=== PATIENT | male | born 1965 | race Hispanic/Latino ===

== ENCOUNTER 2019-07-01 07:26 | Observation (INO) | payer OTHER ==
[2019-07-01] VITALS (19 sets, daily range): BP systolic 132–149; BP diastolic 74–110
[2019-07-01 07:56] LABS: BASOPHILS % (AUTO) 0.9 % (0.0-5.0); HEMATOCRIT 47.8 % (42-54); LYMPHOCYTES % (AUTO) 18.6 % (21.0-51.0); MEAN CORPUSCULAR HEMOGLOBIN 30.6 pg (27.0-33.0); MEAN CORPUSCULAR HGB CONC 34.1 g/dL (32.0-36.0); MEAN CORPUSCULAR VOLUME 89.7 fL (79-99); MONOCYTES % (AUTO) 7.4 % (3.0-13.0); NEUTROPHILS % (AUTO) 72.1 % (40.0-77.0); NUCLEATED RED BLOOD CELLS 0.1 % (0.0-0.19); PLATELET COUNT (AUTO) 284 K/uL (130-400); RED BLOOD CELL COUNT(AUTO) 5.33 MIL/uL (4.50-6.20); RED CELL DISTRIBUTION WIDTH 13.3 % (11.0-15.5); WHITE BLOOD COUNT (AUTO) 9.9 K/uL (4.8-10.8)
[2019-07-01 07:57] LABS: APPEARANCE,URINE Clear (CLEAR); BILIRUBIN,URINE Negative (NEGATIVE); COLOR,URINE Yellow (YELLOW); GLUCOSE, URINE (UA) Negative (NEGATIVE); KETONES,URINE Negative (NEGATIVE); LEUKOCYTE ESTERASE ,URINE Trace (NEGATIVE); NITRATE,URINE Negative (NEGATIVE); OCCULT BLOOD,URINE Moderate (NEGATIVE); PROTEIN,URINE Negative (NEGATIVE); UROBILINOGEN,URINE 0.2 mg/dL (0.2-1.0)
[2019-07-01] MEDS ORDERED: ONDANSETRON HCL 4 MG/2 ML VIAL ONE (08:01)
[2019-07-01] MEDS ORDERED: KETOROLAC TROMETHAMINE 30MG/ML ONE (08:01)
[2019-07-01] MEDS ORDERED: SODIUM CHLORIDE 0.9% 1000ML 1,000 ML IV ONE (08:02)
[2019-07-01 08:05] LABS: AMPHET/METH SCREEN,URINE NEGATIVE (NEGATIVE); BACTERIA,URINE None Seen /HPF (None Seen); BARBITURATE SCREEN, URINE NEGATIVE (NEGATIVE); BENZODIAZEPINES SCREEN,URINE NEGATIVE (NEGATIVE); CANNABINOID SCREEN,URINE NEGATIVE (NEGATIVE); COCAINE SCREEN,URINE NEGATIVE (NEGATIVE); OPIATE SCREEN,URINE NEGATIVE (NEGATIVE); PHENCYCLIDINE SCREEN,URINE NEGATIVE (NEGATIVE); SQUAMOUS EPITHELIAL CELL,UR 0-2 /HPF (0-2); URIC ACID CRYSTALS,URINE Moderate /LPF (None Seen); WBC,URINE 0-1 /HPF (0-1)
[2019-07-01 08:10] LABS: CREATININE 1.8 mg/dL (0.5-1.5); POTASSIUM 4.4 mmol/L (3.5-5.1)
[2019-07-01 08:14] LABS: INR 0.95 (0.85-1.15); PARTIAL THROMBOPLASTIN TIME 30.1 SEC (26.3-35.5)
[2019-07-01 08:17] LABS: ALBUMIN 4.1 g/dL (3.5-5.0); BILIRUBIN,DIRECT 0.1 mg/dL (0.0-0.3); BILIRUBIN,TOTAL 0.6 mg/dL (0.2-1.0); TOTAL PROTEIN, SERUM 9.2 g/dL (6.0-8.3)
[2019-07-01] MEDS: CEFTRIAXONE SODIUM 1 GM ONE ×2 (10:27→12:10)
[2019-07-01] MEDS ORDERED: LACTATED RINGERS 1000ML 1,000 ML IV ONE (10:28)
[2019-07-01] MEDS ORDERED: IOHEXOL-350 50ML VIAL IV ONE (11:06)
[2019-07-01] MEDS ORDERED: FENTANYL CITRATE PF 50 MCG/1 ML 2ML VIAL ONE (12:00)
[2019-07-01] MEDS ORDERED: LIDOCAINE PF 2% 5ML ABBOJECT ONE (12:00)
[2019-07-01] MEDS ORDERED: PROPOFOL 10 MG/ML 20ML VIAL IV ONE (12:00)
[2019-07-01] MEDS ORDERED: EPHEDRINE SULFATE 50 MG/ML AMPULE ONE (12:27)
--- NOTE | 2019-07-01 13:58 | NUR ---
REPORT RECEIVED FROM TERRY CHEEMA (PACU). PATIENT S/P RIGHT URETEROSCOPY WITH LASER LITHOTRIPSY AND URETAL STENT. PATIENT STABLE AND ABLE TO BE DISCHARGE LATER TODAY.
[2019-07-01] MEDS ORDERED: LOSA25TA41 PO (15:03)
--- NOTE | 2019-07-01 18:52 | NUR ---
DISCHARGE PATIENT GIVEN DISCHARGE INSTRUCTIONS VIA TEACH BACK. 20G PIV TO RAC DISCONTINUED, TIP INTACT. PATIENT VOIDING PINK TINGED URINE WITHOUT ANY COMPLAINTS. PATIENT TO FOLLOW UP WITH DR. CARO ON 07/08/19 AT 1415 FOR STENT REMOVAL. PATIENT STABLE AT THIS TIME. RX GIVEN. PATIENT WHEELED DOWNSTAIRS BY MYRANDA FELICIANO AND SON.
== END 2019-07-01 19:02 | disposition home or self-care (01) ==
LOC: EDH 07:26 → DAH 09:15 → EDHIP 09:16 → DAH 13:10 → 3BH 14:40
PROVIDERS: ADMIT Urology; ATTEND Urology
DX: N13.2 Hydronephrosis with renal and ureteral calculous obstruction (principal); E78.5 Hyperlipidemia, unspecified; I10 Essential (primary) hypertension; Z79.899 Other long term (current) drug therapy; Z79.01 Long term (current) use of anticoagulants; Z87.442 Personal history of urinary calculi
CPT/HCPCS: 36415; 52356; 74018; 74420; 80048; 80076; 80305; 81001; 82550; 85025; 85610; 85730; 93005; 99284; A4358; A4600; A4649; A4930 ×2; A6207; C1751; C1758; C1769; C2617; G0378 ×10; J0696; J1885; J2001; J2405; J2704; J3010; J3490; J7030 ×2; J7120 ×2; Q9967

== ENCOUNTER 2020-02-29 16:22 | Emergency (ER) | payer OTHER ==
[~2020-02-29 16:22] MED LIST: LOSA25TA41 PO
[2020-02-29 16:39] LABS: APPEARANCE,URINE Clear (CLEAR); BILIRUBIN,URINE Negative (NEGATIVE); COLOR,URINE Yellow (YELLOW); GLUCOSE, URINE (UA) Negative (NEGATIVE); KETONES,URINE 15 mg/dL (NEGATIVE); LEUKOCYTE ESTERASE ,URINE Negative (NEGATIVE); NITRATE,URINE Negative (NEGATIVE); OCCULT BLOOD,URINE Moderate (NEGATIVE); PROTEIN,URINE POS 2+ mg/dL (NEGATIVE); UROBILINOGEN,URINE 0.2 mg/dL (0.2-1.0)
[2020-02-29] MEDS ORDERED: ONDANSETRON HCL 4 MG/2 ML VIAL ONE (16:49)
[2020-02-29] MEDS ORDERED: MORPHINE SULFATE 4 MG/1ML SYG ONE (16:49)
[2020-02-29] MEDS ORDERED: SODIUM CHLORIDE 0.9% 1000ML 1,000 ML IV ONE ×2 (16:50→18:25)
[2020-02-29 16:51] LABS: BACTERIA,URINE Rare /HPF (None Seen); MUCUS,URINE Rare LPF (None Seen); SQUAMOUS EPITHELIAL CELL,UR Rare /HPF (0-2); WBC,URINE 0-1 /HPF (0-1)
[2020-02-29 17:09] LABS: BASOPHILS % (AUTO) 0.4 % (0.0-5.0); HEMATOCRIT 51.4 % (42-54); LYMPHOCYTES % (AUTO) 8.3 % (21.0-51.0); MEAN CORPUSCULAR HEMOGLOBIN 29.8 pg (27.0-33.0); MEAN CORPUSCULAR HGB CONC 34.8 g/dL (32.0-36.0); MEAN CORPUSCULAR VOLUME 85.5 fL (79-99); NEUTROPHILS % (AUTO) 87.9 % (40.0-77.0); PLATELET COUNT (AUTO) 234 K/uL (130-400); RED BLOOD CELL COUNT(AUTO) 6.01 MIL/uL (4.50-6.20); RED CELL DISTRIBUTION WIDTH 13.2 % (11.0-15.5); WHITE BLOOD COUNT (AUTO) 13.2 K/uL (4.8-10.8)
[2020-02-29 17:20] LABS: CREATININE 1.6 mg/dL (0.5-1.5); POTASSIUM 3.9 mmol/L (3.5-5.1)
[2020-02-29 17:24] LABS: ALBUMIN 4.3 g/dL (3.5-5.0); BILIRUBIN,TOTAL 0.6 mg/dL (0.2-1.0); TOTAL PROTEIN, SERUM 9.2 g/dL (6.0-8.3)
[2020-02-29] MEDS ORDERED: TAMSULOSIN HCL 0.4 MG CAP.ER.24H ONE (18:25)
[2020-02-29] MEDS ORDERED: KETOROLAC TROMETHAMINE 15MG/ML ONE (18:25)
[2020-02-29] MEDS ORDERED: HYDRALAZINE HCL 25 MG TABLET ONE (18:56)
== END 2020-02-29 19:49 | disposition home or self-care (01) ==
LOC: EDH 16:22
DX: N13.39 Other hydronephrosis (principal); I10 Essential (primary) hypertension; Z87.442 Personal history of urinary calculi
CPT/HCPCS: 36415; 74176; 80053; 81001; 83690; 85025; 87088; 96361; 96374; 96375; 99284; J1885; J2270; J2405; J7030 ×2